=== PATIENT | female | born 1965 | race African-American/Black ===

== ENCOUNTER 2017-02-18 14:18 | Emergency (ER) | payer BC ==
[~2017-02-18] VITALS: Ht 160 cm; Wt 108.7 kg
[~2017-02-18 14:18] MED LIST: ALBU1AER INH; BETH10TA PO; LISI10TA PO; OSEL75 PO; PROM25SU8 PO; PROT40TA PO; SYNT88TA PO; ZITH250T PO
[2017-02-18 14:22] VITALS: BP 136/66; PULSE 65; RESP 16; TEMP 98.4; O2SAT 100
[2017-02-18] MEDS ORDERED: VESI5TAB PO (14:43)
[2017-02-18] MEDS ORDERED: LISI20TA3 PO (14:43)
[2017-02-18] MEDS ORDERED: LEVO75TA3 PO (14:43)
[2017-02-18] MEDS ORDERED: ALBUAER3 INH (14:43)
[2017-02-18] MEDS ORDERED: BETH10TA2 PO (14:43)
[2017-02-18] MEDS ORDERED: PANT40TA3 PO (14:43)
[2017-02-18] MEDS ORDERED: SODIUM CHLOR 0.9% 1000 ML INJ 1,000 ML IV SCH (14:50)
--- NOTE | 2017-02-18 14:55 | PD ---
HPI Chief Complaint: Flank/Kidney Pain Time Seen by Provider: 14:38 Travel History International Travel<30 days: No Contact w/Intl Traveler<30days: No Traveled to known affect area: No History of Present Illness HPI The patient is a 51-year-old female who presents to the emergency department for right flank pain. The patient recently had her urethra dilated last Friday by her urologist, Dr. Meadows, and was placed on antibiotics for 2 days. The patient states she took the anabolic once a day for 2 days, does not know the name of the antibiotic. She does have a history of urinary frequency and has her urethra dilated twice a year, she also has a history of 5 previous bladder lift. The patient complains of right flank pain, back pain that radiates into the right groin pain over the last 4-5 days with mild urgency and frequency. She notes minimal dysuria for the last 48 hours. She denies any nausea, vomiting, or upper abdominal pain. She denies any fever , chills, or sweats. Symptoms are mild to moderate, there are no known alleviating or exacerbating factors. PFSH Past Medical History Anemia: Yes Asthma: Yes Autoimmune Disease: Yes (MS) Heart Rhythm Problems: No Cardiac Catheterization: No Cardiovascular Problems: Yes High Cholesterol: No Congestive Heart Failure: No Diabetes: No Diminished Hearing: No Fibromyalgia: Yes Gastrointestinal Disorders: Yes (GASTROPARESIS) GERD: Yes Genitourinary: Yes Hypertension: Yes Musculoskeletal: Yes (BULGING DISC) Respiratory: Yes (asthma) Thyroid Disease: Yes (HYPO) Tetanus Vaccination: Unknown Influenza Vaccination: No ?: Not Past Surgical History Coronary Artery Bypass Graft: No Genitourinary Surgery: Yes (BLADDER SUSPENSION/ cystoscopy w/ urethral dilation x 2) Gynecologic Surgery: Yes (oophorectomy) Hysterectomy: Yes Other Surgery: Yes (thyroidectomy) Family History Family Myocardial Infarction: Yes (grand father) Social History Alcohol Use: No Tobacco Use: No Substance Use: No Allergies-Medications (Allergen,Severity, Reaction): Coded Allergies: codeine (Unverified Allergy, Severe, NAUSEA, 02/18/17) pt states does not have allergy to this medication Jf Reported Meds & Prescriptions Reported Meds & Active Scripts Active Reported Proair Hfa 8.5 GM Inh (Albuterol Sulfate) 90 Mcg/Act Aer 2 Puff INH Q6H PRN 108 mcg/actuation Bethanechol 10 Mg Tab 10 Mg PO QID Vesicare (Solifenacin) 5 Mg Tab 5 Mg PO DAILY Levothyroxine (Levothyroxine Sodium) 75 Mcg Tab 75 Mcg PO DAILY Pantoprazole (Pantoprazole Sodium) 40 Mg Tab 80 Mg PO DAILY Lisinopril-Hctz 20-25 Mg Tab 1 Tab PO DAILY Review of Systems Except as stated in HPI: all other systems reviewed are Neg General / Constitutional: No: Fever Cardiovascular: No: Chest Pain or Discomfort Respiratory: No: Shortness of Breath Gastrointestinal: No: Nausea, Vomiting, Abdominal Pain Genitourinary: Positive: Urgency, Frequency, Dysuria, Flank Pain, No: Hematuria Skin: No Rash Physical Exam Narrative GENERAL: Awake, alert, pleasant 51-year-old female who appears her stated age and is in no acute respiratory distress. SKIN: Focused skin assessment warm/dry. HEAD: Atraumatic. Normocephalic. EYES: No injection or drainage. ENT: No nasal bleeding or discharge. Mucous membranes pink and moist. NECK: Trachea midline. No JVD. CARDIOVASCULAR: Regular rate and rhythm. No murmur appreciated. RESPIRATORY: No accessory muscle use. Clear to auscultation. Breath sounds equal bilaterally. GASTROINTESTINAL: Abdomen soft, tender palpation right lower quadrant. Minimal suprapubic tenderness. Back: Right CVA tenderness. MUSCULOSKELETAL: No obvious deformities. No clubbing. No cyanosis. No edema. NEUROLOGICAL: Awake and alert. No obvious cranial nerve deficits. Motor grossly within normal limits. Normal speech. PSYCHIATRIC: Appropriate mood and affect; insight and judgment normal. Data Data Last Documented VS Vital Signs Date Time Temp Pulse Resp B/P (MAP) Pulse Ox O2 Delivery O2 Flow Rate FiO2 02/18/17 15:40 18 99 Room Air 02/18/17 14:22 98.4 65 136/66 (89) Orders Orders Complete Blood Count With Diff (02/18/17 14:50) Comprehensive Metabolic Panel (02/18/17 14:50) Urinalysis - C+S If Indicated (02/18/17 14:50) Ct Abd/Pel W/O Iv Contrast (02/18/17 14:50) Iv Access Insert/Monitor (02/18/17 14:50) Ecg Monitoring (02/18/17 14:50) Oximetry (02/18/17 14:50) Ondansetron Inj (Zofran Inj) (02/18/17 15:00) Sodium Chlor 0.9% 1000 Ml Inj (Ns 1000 M (02/18/17 14:50) Sodium Chloride 0.9% Flush (Ns Flush) (02/18/17 15:00) Ketorolac Inj (Toradol Inj) (02/18/17 15:00) Labs Laboratory Tests Test 02/18/17 14:50 02/18/17 15:10 Urine Color STRAW Urine Turbidity CLEAR Urine pH 6.0 Urine Specific [place] 1.006 Urine Protein NEG mg/dL Urine Glucose (UA) NEG mg/dL Urine Ketones NEG mg/dL Urine Occult Blood NEG Urine Nitrite NEG Urine Bilirubin NEG Urine Leukocyte Esterase NEG Urine Squamous Epithelial Cells 0-5 /hpf Microscopic Urinalysis Comment CULT NOT INDICATED White Blood Count 7.6 TH/MM3 Red Blood Count 4.41 MIL/MM3 Hemoglobin 10.7 GM/DL Hematocrit 33.8 % Mean Corpuscular Volume 76.7 FL Mean Corpuscular Hemoglobin 24.3 PG Mean Corpuscular Hemoglobin Concent 31.7 % Red Cell Distribution Width 15.4 % Platelet Count 247 TH/MM3 Mean Platelet Volume 8.7 FL Neutrophils (%) (Auto) 54.9 % Lymphocytes (%) (Auto) 30.8 % Monocytes (%) (Auto) 5.4 % Eosinophils (%) (Auto) 4.3 % Basophils (%) (Auto) 4.6 % Neutrophils # (Auto) 4.3 TH/MM3 Lymphocytes # (Auto) 2.3 TH/MM3 Monocytes # (Auto) 0.4 TH/MM3 Eosinophils # (Auto) 0.3 TH/MM3 Basophils # (Auto) 0.3 TH/MM3 CBC Comment AUTO DIFF Blood Urea Nitrogen 14 MG/DL Creatinine 0.74 MG/DL Random Glucose 111 MG/DL Total Protein 7.2 GM/DL Albumin 3.3 GM/DL Calcium Level 9.0 MG/DL Alkaline Phosphatase 129 U/L Aspartate Amino Transf (AST/SGOT) 14 U/L Alanine Aminotransferase (ALT/SGPT) 23 U/L Total Bilirubin 0.1 MG/DL Sodium Level 136 MEQ/L Potassium Level 3.6 MEQ/L Chloride Level 100 MEQ/L Carbon Dioxide Level 29.4 MEQ/L Anion Gap 7 MEQ/L Estimat Glomerular Filtration Rate 99 ML/MIN [facility] Medical Decision Making Medical Screen Exam Complete: Yes Emergency Medical Condition: Yes Medical Record Reviewed: Yes Interpretation(s) CT the abdomen and pelvis reveals no acute CT findings to explain patient's abdominal pain. No evidence for obstructive uropathy or radiopaque calculi. No drainable pelvic fluid collection. Normal appendix. Laboratory Tests Test 02/18/17 14:50 02/18/17 15:10 Urine Color STRAW Urine Turbidity CLEAR Urine pH 6.0 Urine Specific [place] 1.006 Urine Protein NEG mg/dL Urine Glucose (UA) NEG mg/dL Urine Ketones NEG mg/dL Urine Occult Blood NEG Urine Nitrite NEG Urine Bilirubin NEG Urine Leukocyte Esterase NEG Urine Squamous Epithelial Cells 0-5 /hpf Microscopic Urinalysis Comment CULT NOT INDICATED White Blood Count 7.6 TH/MM3 Red Blood Count 4.41 MIL/MM3 Hemoglobin 10.7 GM/DL Hematocrit 33.8 % Mean Corpuscular Volume 76.7 FL Mean Corpuscular Hemoglobin 24.3 PG Mean Corpuscular Hemoglobin Concent 31.7 % Red Cell Distribution Width 15.4 % Platelet Count 247 TH/MM3 Mean Platelet Volume 8.7 FL Neutrophils (%) (Auto) 54.9 % Lymphocytes (%) (Auto) 30.8 % Monocytes (%) (Auto) 5.4 % Eosinophils (%) (Auto) 4.3 % Basophils (%) (Auto) 4.6 % Neutrophils # (Auto) 4.3 TH/MM3 Lymphocytes # (Auto) 2.3 TH/MM3 Monocytes # (Auto) 0.4 TH/MM3 Eosinophils # (Auto) 0.3 TH/MM3 Basophils # (Auto) 0.3 TH/MM3 CBC Comment AUTO DIFF Blood Urea Nitrogen 14 MG/DL Creatinine 0.74 MG/DL Random Glucose 111 MG/DL Total Protein 7.2 GM/DL Albumin 3.3 GM/DL Calcium Level 9.0 MG/DL Alkaline Phosphatase 129 U/L Aspartate Amino Transf (AST/SGOT) 14 U/L Alanine Aminotransferase (ALT/SGPT) 23 U/L Total Bilirubin 0.1 MG/DL Sodium Level 136 MEQ/L Potassium Level 3.6 MEQ/L Chloride Level 100 MEQ/L Carbon Dioxide Level 29.4 MEQ/L Anion Gap 7 MEQ/L Estimat Glomerular Filtration Rate 99 ML/MIN Differential Diagnosis Differential diagnosis includes UTI, pyelonephritis, nephrolithiasis, hydronephrosis, acute renal failure, atypical appendicitis, diverticulitis. Narrative Course IV was established, labs are drawn and sent, and the patient was placed on cardiac telemetry monitoring and continuous pulse oximetry monitoring. UA was sent to lab. The patient was administered Toradol and IV fluids. Noncontrast CT of the abdomen and pelvis was ordered. UA is unremarkable. CT the abdomen and pelvis is unremarkable. The patient's pain that radiates to the back to the anterior inguinal area could be radiculopathy, shingles, or musculoskeletal pain. The patient was reassessed at 4:10 PM, still had mild right sided flank pain with nausea. Therefore, patient was administer morphine and Zofran. The patient will be provided anti-inflammatories and pain medications. She is advised to follow-up with her primary physician. She will be provided a copy of the CT results and lab results at discharge. Diagnosis Primary Impression: Flank pain Patient Instructions: General Instructions Additional Instructions: Please provide the patient a copy of her CT results and lab results at discharge. Follow-up with your primary physician. Follow-up with your urologist. Return if symptoms worsen or progress. Med/Other Pt SpecificInfo: Prescription(s) given Scripts Ibuprofen (Ibuprofen) 400 Mg Tab 400 MG PO Q6H Y for PAIN SCALE 1 TO 10, #20 TAB 0 Refills Prov: Adryan Beasley MD 02/18/17 Hydrocodone-Acetaminophen ([place]) 5-325 mg Tab 1 TAB PO Q6H Y for PAIN, #12 TAB 0 Refills Prov: Adryan Beasley MD 02/18/17 Disposition: 01 DISCHARGE HOME Condition: Stable Adryan Beasley MD Feb 18, 2017 14:55
[2017-02-18] MEDS ORDERED: KETOROLAC TROMETHAMINE 30 MG/ML (IVP) VIAL IVP ONE (15:00)
[2017-02-18] MEDS ORDERED: SODIUM CHLORIDE 0.9% FLUSH 10 ML FLUSH IV FLUSH PRN (15:00)
[2017-02-18] MEDS ORDERED: ONDANSETRON HCL 4 MG/2 ML VIAL IVP ONE (15:00)
[2017-02-18 15:15] LABS: BLOOD, URINE NEG (NEG); GLUCOSE,URINE NEG (NEG); KETONE, URINE NEG (NEG); NITRITE,URINE NEG (NEG)
[2017-02-18 15:21] LABS: URINE COLOR STRAW (YELLW/STRAW)
[2017-02-18 15:23] LABS: COMMENT (UR) CULT NOT INDICATED; CULTURE IF INDICATED CULT NOT INDICATED; SQUAMOUS EPITHELIAL CELL URINE 0-5 /hpf (0-5)
[2017-02-18 15:24] LABS: AUTOMATED NEUTROPHIL # 4.3 TH/MM3 (1.8-7.7); BASOPHIL # 0.3 TH/MM3 (0-0.2); BASOPHIL % 4.6 % (0.0-2.0); EOSINOPHIL # 0.3 TH/MM3 (0-0.4); EOSINOPHIL % 4.3 % (0.0-4.0); HEMATOCRIT 33.8 % (35.0-46.0); LYMPH % 30.8 % (9.0-44.0); LYMPHOCYTE # 2.3 TH/MM3 (1.0-4.8); MEAN CELL VOLUME 76.7 FL (80.0-100.0); MEAN CORPUSCULAR HEMOGLOBIN 24.3 PG (27.0-34.0); MEAN CORPUSCULAR HGB CONC 31.7 % (32.0-36.0); MONO % 5.4 % (0.0-8.0); NEUT % 54.9 % (16.0-70.0); PLATELET COUNT 247 TH/MM3 (150-450); RED BLOOD COUNT 4.41 MIL/MM3 (4.00-5.30); RED CELL DISTRIBUTION WIDTH 15.4 % (11.6-17.2); WHITE BLOOD COUNT 7.6 TH/MM3 (4.0-11.0)
[2017-02-18 15:25] LABS: HEMO FLAGS AUTO DIFF
[2017-02-18 15:33] LABS: CHLORIDE 100 MEQ/L (98-107); POTASSIUM 3.6 MEQ/L (3.5-5.1); SODIUM (NA) 136 MEQ/L (136-145)
[2017-02-18 15:36] LABS: ANION GAP 7 MEQ/L (5-15); BICARBONATE 29.4 MEQ/L (21.0-32.0); BLOOD UREA NITROGEN 14 MG/DL (7-18)
[2017-02-18 15:39] LABS: ALT (GPT) 23 U/L (10-53); AST (GOT) 14 U/L (15-37); GLOMERULAR FILTRATION RATE 99 ML/MIN (>89)
[2017-02-18 15:40] VITALS: RESP 18; O2SAT 99
[2017-02-18 15:41] LABS: TOTAL BILIRUBIN ADULT 0.1 MG/DL (0.2-1.0)
[2017-02-18 15:42] LABS: ALKALINE PHOSPHATASE 129 U/L (45-117)
--- NOTE | 2017-02-18 16:09 | RADRPT ---
EXAM DATE/TIME: 02/18/2017 15:47 [facility] COMPARISON: No previous studies available for comparison. INDICATIONS : Right flank pain for 4 days, urethra dilated last Friday ORAL CONTRAST: No oral contrast ingested. RADIATION DOSE: 25.92 CTDIvol (mGy) MEDICAL HISTORY : Hypertension. Gastroparesis. Asthma SURGICAL HISTORY : Hysterectomy. Bladder suspension, urethra dilated ENCOUNTER: Initial ACUITY: 4 - 6 days PAIN SCALE: 5/10 LOCATION: Right flank TECHNIQUE: Volumetric scanning of the abdomen and pelvis was performed. Using automated exposure control and ad justment of the mA and/or kV according to patient size, radiation dose was kept as low as reasonably achievable to obtain optimal diagnostic quality images. DICOM format image data is available electro nically for review and comparison. FINDINGS: LOWER LUNGS: The visualized lower lungs are clear. LIVER: Homogeneous density without lesion. There is no dilation of the biliary tree. No calcified gallston es. SPLEEN: Normal size without lesion. PANCREAS: Within normal limits. KIDNEYS: Kidneys are symmetrical in size without evidence for radiopaque renal calculi or hydronephrosis. Uret ers are normal in size. Several calcifications in the pelvis near the UVJ are likely phleboliths. No definitive ureteral radiopaque calculus. ADRENAL GLANDS: Within normal limits. VASCULAR: There is no aortic aneurysm. BOWEL/MESENTERY: The stomach, small bowel, and colon demonstrate no acute abnormality. Appendix is visualized and norm al. There is no free intraperitoneal air or fluid. ABDOMINAL WALL: Within normal limits. RETROPERITONEUM: There is no lymphadenopathy. BLADDER: No wall thickening or mass. No air or radiopaque calculi. REPRODUCTIVE: Status post hysterectomy. INGUINAL: There is no lymphadenopathy or hernia. MUSCULOSKELETAL: Within normal limits for patient age. CONCLUSION: 1. No acute CT findings to explain patient's abdominal pain. 2. No evidence for obstructive uropathy or radiopaque calculi. 3. No drainable pelvic fluid collections. 4. Normal appendix. Trenton Pereira MD on February 18, 2017 at 16:03 Board Certified Radiologist. This report was verified electronically.
[2017-02-18] MEDS ORDERED: NORC5TAB PO (16:15)
[2017-02-18] MEDS ORDERED: ONDANSETRON HCL 4 MG/2 ML VIAL IV PUSH ONE (16:15)
[2017-02-18] MEDS ORDERED: IBUP400T20 PO (16:15)
[2017-02-18] MEDS ORDERED: MORPHINE SULFATE 4 MG/ML INJ IV PUSH ONE (16:15)
[2017-02-18 16:23] LABS: OVALOCYTES 1+ (NORMAL); SCAN/DIFF AUTO DIFF CONFIRMED
[2017-02-18 16:36] VITALS: BP 121/73; PULSE 65; RESP 16; O2SAT 99
[2017-02-18 17:03] VITALS: RESP 18
== END 2017-02-18 17:13 | disposition home or self-care (01) ==
LOC: PHED 14:18
DX: R10.9 Unspecified abdominal pain (principal); I10 Essential (primary) hypertension; K21.9 Gastro-esophageal reflux disease without esophagitis
CPT/HCPCS: 74176; 80053; 81001; 85025; 96374; 96375; 96376; 99285; J1885; J2270; J2405; J7030

== ENCOUNTER 2017-02-27 16:52 | Emergency (ER) | payer BC ==
[~2017-02-27] VITALS: Ht 160 cm; Wt 110.0 kg
[~2017-02-27 16:52] MED LIST changes: -ALBU1AER INH; +ALBUAER3 INH; -BETH10TA PO; +BETH10TA2 PO; +IBUP400T20 PO; +LEVO75TA3 PO; -LISI10TA PO; +LISI20TA3 PO; +NORC5TAB PO; -OSEL75 PO; +PANT40TA3 PO; -PROM25SU8 PO; -PROT40TA PO; -SYNT88TA PO; +VESI5TAB PO; -ZITH250T PO
[2017-02-27 16:54] VITALS: BP 149/91; PULSE 65; RESP 17; TEMP 98.7; O2SAT 98
[2017-02-27] MEDS ORDERED: diphenhydrAMINE HCL 50 MG/ML VIAL IV PUSH ONE (17:15)
[2017-02-27] MEDS ORDERED: methylPREDNISolone SOD SUCC 125 MG/2 ML VIAL IV PUSH ONE (17:15)
--- NOTE | 2017-02-27 17:30 | PD ---
HPI Chief Complaint: Allergic/Adverse Reaction Time Seen by Provider: 17:14 Travel History International Travel<30 days: No Contact w/Intl Traveler<30days: No Traveled to known affect area: No History of Present Illness HPI This is a 51-year-old female with a history of shellfish allergy, and presents today with complaints of tingling of her mouth and itching of her skin. The patient was at a birthday constitution party at a local restaurant and reports that she was eating ice cream. She states that she thought she was sucking on a not and when she went to take it out of her mouth she noticed that it was a fingernail. It shortly thereafter she began feeling nauseous and also had the itching and tingling in her mouth. Her friend is at the bedside states that several members that the constitution party had shrimp in the dishes and she is wondering if there may have been some cross contamination. PFSH Past Medical History Anemia: Yes Asthma: Yes Autoimmune Disease: Yes (MS) Heart Rhythm Problems: No Cardiac Catheterization: No Cardiovascular Problems: Yes High Cholesterol: No Congestive Heart Failure: No Diabetes: No Diminished Hearing: No Fibromyalgia: Yes Gastrointestinal Disorders: Yes (GASTROPARESIS) GERD: Yes Genitourinary: Yes Hypertension: Yes Musculoskeletal: Yes (BULGING DISC) Respiratory: Yes (asthma) Thyroid Disease: Yes (HYPO) ?: Not Past Surgical History Coronary Artery Bypass Graft: No Genitourinary Surgery: Yes (BLADDER SUSPENSION/ cystoscopy w/ urethral dilation x 2) Gynecologic Surgery: Yes (oophorectomy) Hysterectomy: Yes Other Surgery: Yes (thyroidectomy) Family History Family Myocardial Infarction: Yes (grand father) Social History Alcohol Use: No Tobacco Use: No Substance Use: No Allergies-Medications (Allergen,Severity, Reaction): Coded Allergies: codeine (Unverified Allergy, Severe, NAUSEA, 02/18/17) pt states does not have allergy to this medication Jf shellfish derived (Verified Allergy, Severe, TONGUE SWELLS, AND THEN THROAT, 02/27/17) Reported Meds & Prescriptions Reported Meds & Active Scripts Active Prednisone 20 Mg Tab 40 Mg PO DAILY 5 Days Take 40 mg (2 tablets) daily for 5 days Ibuprofen 400 Mg Tab 400 Mg PO Q6H PRN [place] (Hydrocodone-Acetaminophen) 5-325 mg Tab 1 Tab PO Q6H PRN Reported Proair Hfa 8.5 GM Inh (Albuterol Sulfate) 90 Mcg/Act Aer 2 Puff INH Q6H PRN 108 mcg/actuation Bethanechol 10 Mg Tab 10 Mg PO QID Vesicare (Solifenacin) 5 Mg Tab 5 Mg PO DAILY Levothyroxine (Levothyroxine Sodium) 75 Mcg Tab 75 Mcg PO DAILY Pantoprazole (Pantoprazole Sodium) 40 Mg Tab 80 Mg PO DAILY Lisinopril-Hctz 20-25 Mg Tab 1 Tab PO DAILY Review of Systems Except as stated in HPI: all other systems reviewed are Neg General / Constitutional: No: Fever, Chills Eyes: Positive: Other (subjective it she tongue), No: Blurred Vision, Photophobia HENT: No: Headaches, Neck Pain Cardiovascular: No: Chest Pain or Discomfort, Palpitations Respiratory: No: Cough, Shortness of Breath Gastrointestinal: Positive: Nausea, No: Diarrhea, Abdominal Pain Skin: Positive Rash, Positive Itching Neurologic: No: Weakness, Dizziness, Headache Physical Exam Narrative GENERAL: Well-nourished, well-developed patient, in no acute respiratory distress.. SKIN: Focused skin assessment warm/dry. There are several areas of urticaria that she is itching on her arms and legs. HEAD: Normocephalic/atraumatic. ENT: Mucosa pink and moist. No erythema or exudates. No uvular edema. Airway patent with no stridor. EYES: No scleral icterus. No injection or drainage. NECK: Supple, trachea midline. No JVD or lymphadenopathy. CARDIOVASCULAR: Regular rate and rhythm without murmurs, gallops, or rubs. RESPIRATORY: Breath sounds equal bilaterally. No accessory muscle use. GASTROINTESTINAL: Abdomen soft, non-tender, nondistended. MUSCULOSKELETAL: No cyanosis, or edema. NEUROLOGICAL: Awake and alert. Cranial nerves II through XII intact. Motor and sensory grossly within normal limits. Five out of 5 muscle strength in all muscle groups. Normal speech. Data Data Last Documented VS Vital Signs Date Time Temp Pulse Resp B/P (MAP) Pulse Ox O2 Delivery O2 Flow Rate FiO2 02/27/17 18:12 68 18 125/81 (96) 99 Room Air 02/27/17 16:54 98.7 Orders Orders Methylprednisolone So Succ Inj (Solumedr (02/27/17 17:15) Diphenhydramine Inj (Benadryl Inj) (02/27/17 17:15) [facility] Medical Decision Making Medical Screen Exam Complete: Yes Emergency Medical Condition: Yes Differential Diagnosis Acute allergic reaction versus adverse reaction to fingernail acute anxiety episode Narrative Course 51-year-old female presents with lip and mouth tingling and urticarial rash to the arms and legs. The patient was at a birthday constitution party at a restaurant and she was eating tonight screaming found a nail in her food. She states shortly thereafter she started sprinting the symptoms. The patient does have a allergy to shellfish. She's been given 125 mg of Solu-Medrol and 50 mg of Benadryl. She'll be observed here for 3 hours. If she has no worsening symptoms, she'll be discharged with a prescription for prednisone, 40 mg daily 5 days. She'll also be instructed to take Benadryl 50 mg every 8 hours as needed. Diagnosis Primary Impression: Allergic reaction Additional Instructions: Take Benadryl 50 mg every 8 hours while taking the prednisone. Please take prednisone with food. Med/Other Pt SpecificInfo: Prescription(s) given Scripts Prednisone (Prednisone) 20 Mg Tab 40 MG PO DAILY for 5 Days, #10 TAB 0 Refills Take 40 mg (2 tablets) daily for 5 days Prov: Sancho Pierce MD 02/27/17 Disposition: 01 DISCHARGE HOME Condition: Stable Sancho Pierce MD Feb 27, 2017 17:30
[2017-02-27 18:12] VITALS: BP 125/81; PULSE 68; RESP 18; O2SAT 99
[2017-02-27] MEDS ORDERED: PRED20 PO (19:11)
== END 2017-02-27 20:07 | disposition home or self-care (01) ==
LOC: NEPE 16:52
DX: T78.40XA Allergy, unspecified, initial encounter (principal); D64.9 Anemia, unspecified; J45.909 Unspecified asthma, uncomplicated; G35 Multiple sclerosis; M79.7 Fibromyalgia; K21.9 Gastro-esophageal reflux disease without esophagitis; I10 Essential (primary) hypertension; Z79.899 Other long term (current) drug therapy; X58.XXXA Exposure to other specified factors, initial encounter
CPT/HCPCS: 96374; 96375; 99284; J1200; J2930